=== PATIENT | female | born 1995 ===

== ENCOUNTER 2020-08-09 21:14 | Inpatient (IN) | payer OTHER ==
[~2020-08-09] VITALS: Ht 162.6 cm; Wt 47.3 kg
[2020-08-09] MEDS ORDERED: CYCL10 PO (22:41)
[2020-08-09] MEDS ORDERED: NAPR-1024 PO (22:42)
[2020-08-09] MEDS ORDERED: DiphenhydrAMINE HCL 50 MG/ML VIAL IM ONE (22:45)
[2020-08-09] MEDS ORDERED: HALOPERIDOL LACTATE 5 MG/ML VIAL IM ONE (22:45)
[2020-08-09] MEDS ORDERED: LORazepam 2 MG/ML VIAL IM ONE (22:45)
[2020-08-09 23:28] LABS: BASOPHILS % (AUTO) 0.4 % (0.0-2.0); EOSINOPHILS % (AUTO) 0.6 % (1.0-6.0); HEMATOCRIT 40.6 % (36-46); HEMOGLOBIN 13.3 g/dL (12.0-16.0); LYMPHOCYTES # (AUTO) 1.5 K/uL (1.0-4.8); LYMPHOCYTES % (AUTO) 20.7 % (22.0-44.0); MEAN CORPUSCULAR HEMOGLOBIN 29.7 pg (26.0-34.0); MEAN CORPUSCULAR HGB CONC 32.7 G/dL (31.0-37.0); MEAN CORPUSCULAR VOLUME 91 fL (80-100); MONOCYTES # (AUTO) 0.8 K/uL (0.1-1.0); MONOCYTES % (AUTO) 11.8 % (2.0-9.0); NEUTROPHILS # (AUTO) 4.7 K/uL (1.8-7.7); NEUTROPHILS % (AUTO) 66.5 % (40.0-70.0); PLATELET COUNT (AUTO) 237 K/uL (150-450); RED BLOOD CELL COUNT(AUTO) 4.47 MIL/uL (4.00-5.20); RED CELL DISTRIBUTION WIDTH 14.3 % (11.5-14.5)
[2020-08-09 23:36] LABS: ANION GAP 8 mmol/L (8-16); CALCIUM, TOTAL 9.1 mg/dL (8.8-10.5); CARBON DIOXIDE 23 mmol/L (22-29); CHLORIDE 101 mmol/L (98-107); CREATININE 0.76 mg/dL (0.60-1.30); GLOMERULAR FILTR. RATE CALC > 60 mL/min (>60); GLUCOSE,RANDOM 137 mg/dL (70-110); POTASSIUM 3.3 mmol/L (3.5-5.1); SODIUM SERUM 132 mmol/L (136-145); UREA NITROGEN, BLOOD 8 mg/dL (7-18)
[2020-08-09 23:49] LABS: ALANINE AMINOTRANSFERASE 39 U/L (12-78); ALBUMIN 4.2 g/dL (3.4-5.0); ALKALINE PHOSPHATASE 49 U/L (46-116); ASPARTATE AMINOTRANSFERASE 75 U/L (15-37); BILIRUBIN,TOTAL 2.1 mg/dL (0.1-1.0); HCG,QUANTITATIVE 1 mIU/mL (0-6); TOTAL PROTEIN, SERUM 7.4 g/dL (6.4-8.2)
[2020-08-10] MEDS ORDERED: POTASSIUM CHLORIDE 20 MEQ ER TABLET PO ONE ×2 (01:15→12:15)
[2020-08-10] MEDS ORDERED: 0.9% SODIUM CHLORIDE 10 ML SYRINGE IVP PRN (05:15)
[2020-08-10] MEDS ORDERED: ONDANSETRON HCL 4 MG/2 ML VIAL IVP PRN (05:15)
[2020-08-10] MEDS ORDERED: ACETAMINOPHEN 325 MG TABLET PO PRN (05:45)
[2020-08-10 07:35] VITALS: BP 110/70
[2020-08-10] MEDS: VITAMIN B COMPLEX WITH C TABLET PO SCH (08:17)
[2020-08-10] MEDS: ENOXAPARIN SODIUM 40 MG/0.4 ML PF SYRINGE SQ SCH (08:17)
[2020-08-10 12:57] LABS: APPEARANCE,URINE CLOUDY (CLEAR); BILIRUBIN,URINE NEGATIVE (NEGATIVE); GLUCOSE, URINE (UA) NEGATIVE (NEGATIVE); KETONES,URINE 15 mg/dL (NEGATIVE); LEUKOCYTE ESTERASE ,URINE MODERATE (NEGATIVE); NITRATE,URINE NEGATIVE (NEGATIVE); OCCULT BLOOD,URINE NEGATIVE (NEGATIVE); PROTEIN,URINE NEGATIVE (NEGATIVE); UROBILINOGEN,URINE 0.2 mg/dL (<=1.0)
[2020-08-10 13:02] LABS: AMPHET/METH SCREEN,URINE NEGATIVE (NEGATIVE); BARBITURATE SCREEN, URINE NEGATIVE (NEGATIVE); BENZODIAZEPINES SCREEN,URINE NEGATIVE (NEGATIVE); CANNABINOID SCREEN,URINE NEGATIVE (NEGATIVE); COCAINE SCREEN,URINE NEGATIVE (NEGATIVE); METHADONE SCREEN, URINE NEGATIVE (NEGATIVE); OPIATE SCREEN,URINE NEGATIVE (NEGATIVE)
[2020-08-10 13:05] LABS: PHENCYCLIDINE SCREEN,URINE NEGATIVE (NEGATIVE)
[2020-08-10 13:16] LABS: RBC,URINE 0-2 /HPF (0-2)
[2020-08-10 13:17] LABS: BACTERIA,URINE None Seen /HPF (None Seen); SQUAMOUS EPITHELIAL CELL,UR Few /LPF (None Seen)
[2020-08-10 15:03] VITALS: BP 118/76
[2020-08-10 19:35] VITALS: BP 122/72
[2020-08-11] MEDS: MELATONIN 3 MG TABLET PO PRN ×2 (00:05→22:41)
[2020-08-11 04:44] VITALS: BP 112/63
[2020-08-11 05:54] LABS: ANION GAP 7 mmol/L (8-16); CALCIUM, TOTAL 8.7 mg/dL (8.8-10.5); CARBON DIOXIDE 25 mmol/L (22-29); CHLORIDE 103 mmol/L (98-107); CREATININE 0.66 mg/dL (0.60-1.30); GLOMERULAR FILTR. RATE CALC > 60 mL/min (>60); GLUCOSE,RANDOM 96 mg/dL (70-110); PHOSPHORUS 3.7 mg/dL (2.5-4.9); POTASSIUM 3.7 mmol/L (3.5-5.1); SODIUM SERUM 135 mmol/L (136-145); UREA NITROGEN, BLOOD 5 mg/dL (7-18)
[2020-08-11 06:12] LABS: HEMOGLOBIN A1C 5.7 % (3.8-5.6)
[2020-08-11 07:22] VITALS: BP 111/72
[2020-08-11] MEDS: ONDANSETRON HCL 4 MG TABLET PO PRN ×2 (08:43→08:45)
[2020-08-11] MEDS: VITAMIN B COMPLEX WITH C TABLET PO SCH (08:43)
[2020-08-11] MEDS: ENOXAPARIN SODIUM 40 MG/0.4 ML PF SYRINGE SQ SCH (08:43)
[2020-08-11] MEDS: THIAMINE 100 MG TABLET PO SCH (08:43)
[2020-08-11] MEDS: RisperiDONE 1 MG TABLET PO SCH ×2 (12:03→21:20)
[2020-08-11] MEDS: QUEtiapine FUMARATE 25 MG TABLET PO PRN ×2 (16:33→21:30)
[2020-08-11 19:50] VITALS: BP 116/62
[2020-08-12] MEDS: QUEtiapine FUMARATE 25 MG TABLET PO PRN ×3 (01:20→23:09)
[2020-08-12] MEDS: HALOPERIDOL LACTATE 5 MG/ML VIAL IM PRN ×2 (01:54→14:31)
[2020-08-12 02:00] VITALS: BP 129/81
[2020-08-12] MEDS: VITAMIN B COMPLEX WITH C TABLET PO SCH (09:58)
[2020-08-12] MEDS: RisperiDONE 1 MG TABLET PO SCH ×2 (09:59→20:52)
[2020-08-12] MEDS: THIAMINE 100 MG TABLET PO SCH (09:59)
[2020-08-12] MEDS: ENOXAPARIN SODIUM 40 MG/0.4 ML PF SYRINGE SQ SCH (09:59)
[2020-08-12 10:00] VITALS: BP 98/69
[2020-08-12 17:05] VITALS: BP 103/70
[2020-08-12 20:30] VITALS: BP 123/79
[2020-08-12] MEDS: MELATONIN 3 MG TABLET PO PRN (23:09)
[2020-08-12] MEDS ORDERED: ZOLPIDEM TARTRATE 5 MG TABLET PO ONE (23:30)
[2020-08-13] MEDS: HALOPERIDOL LACTATE 5 MG/ML VIAL IM PRN (03:20)
[2020-08-13 04:40] VITALS: BP 134/89
[2020-08-13] MEDS: QUEtiapine FUMARATE 25 MG TABLET PO PRN ×2 (05:29→23:04)
[2020-08-13 07:33] VITALS: BP 134/86
[2020-08-13 08:51] VITALS: BP 145/98
[2020-08-13] MEDS: ENOXAPARIN SODIUM 40 MG/0.4 ML PF SYRINGE SQ SCH (09:00)
[2020-08-13] MEDS: VITAMIN B COMPLEX WITH C TABLET PO SCH (09:07)
[2020-08-13] MEDS: RisperiDONE 1 MG TABLET PO SCH ×2 (09:07→23:04)
[2020-08-13] MEDS: THIAMINE 100 MG TABLET PO SCH (09:07)
[2020-08-13] MEDS ORDERED: LORazepam 2 MG/ML VIAL IM ONE (10:30)
[2020-08-13 11:08] LABS: BASOPHILS % (AUTO) 0.2 % (0.0-2.0); EOSINOPHILS % (AUTO) 1.1 % (1.0-6.0); HEMATOCRIT 41.1 % (36-46); HEMOGLOBIN 13.3 g/dL (12.0-16.0); LYMPHOCYTES # (AUTO) 1.7 K/uL (1.0-4.8); LYMPHOCYTES % (AUTO) 22.2 % (22.0-44.0); MEAN CORPUSCULAR HEMOGLOBIN 29.4 pg (26.0-34.0); MEAN CORPUSCULAR HGB CONC 32.3 G/dL (31.0-37.0); MEAN CORPUSCULAR VOLUME 91 fL (80-100); MONOCYTES # (AUTO) 0.8 K/uL (0.1-1.0); NEUTROPHILS # (AUTO) 4.9 K/uL (1.8-7.7); NEUTROPHILS % (AUTO) 65.5 % (40.0-70.0); PLATELET COUNT (AUTO) 241 K/uL (150-450); RED BLOOD CELL COUNT(AUTO) 4.52 MIL/uL (4.00-5.20); RED CELL DISTRIBUTION WIDTH 14.3 % (11.5-14.5)
[2020-08-13 12:08] VITALS: BP 126/79
[2020-08-13 16:31] VITALS: BP 116/68
[2020-08-13 20:02] VITALS: BP 122/76
[2020-08-14 00:21] VITALS: BP 139/92
[2020-08-14 04:33] VITALS: BP 128/90
[2020-08-14 07:45] VITALS: BP 131/84
[2020-08-14] MEDS: RisperiDONE 1 MG TABLET PO SCH (08:16)
[2020-08-14] MEDS: ENOXAPARIN SODIUM 40 MG/0.4 ML PF SYRINGE SQ SCH (08:16)
[2020-08-14] MEDS: THIAMINE 100 MG TABLET PO SCH (08:16)
[2020-08-14] MEDS: VITAMIN B COMPLEX WITH C TABLET PO SCH (08:18)
[2020-08-14 12:02] VITALS: BP 124/80
[2020-08-14 15:54] VITALS: BP 136/89
[2020-08-14 19:40] VITALS: BP 122/76
[2020-08-14] MEDS: RisperiDONE 3 MG TABLET PO SCH (21:27)
[2020-08-15] MEDS: MELATONIN 3 MG TABLET PO PRN (00:03)
[2020-08-15 06:03] VITALS: BP 118/81
[2020-08-15] MEDS: QUEtiapine FUMARATE 25 MG TABLET PO PRN ×2 (06:23→21:54)
[2020-08-15 07:15] VITALS: BP 118/64
[2020-08-15] MEDS: THIAMINE 100 MG TABLET PO SCH (10:12)
[2020-08-15] MEDS: VITAMIN B COMPLEX WITH C TABLET PO SCH (10:12)
[2020-08-15] MEDS: ENOXAPARIN SODIUM 40 MG/0.4 ML PF SYRINGE SQ SCH (10:12)
[2020-08-15] MEDS: RisperiDONE 3 MG TABLET PO SCH ×2 (10:12→19:59)
[2020-08-15 19:55] VITALS: BP 124/71
[2020-08-16 03:36] VITALS: BP 121/76
[2020-08-16] MEDS: QUEtiapine FUMARATE 25 MG TABLET PO PRN ×4 (03:45→19:47)
[2020-08-16 08:06] VITALS: BP 134/77
[2020-08-16] MEDS: THIAMINE 100 MG TABLET PO SCH (08:17)
[2020-08-16] MEDS: VITAMIN B COMPLEX WITH C TABLET PO SCH (08:17)
[2020-08-16] MEDS: RisperiDONE 3 MG TABLET PO SCH ×2 (08:17→19:47)
[2020-08-16] MEDS: ENOXAPARIN SODIUM 40 MG/0.4 ML PF SYRINGE SQ SCH (08:18)
[2020-08-16 16:07] VITALS: BP 124/71
[2020-08-16 20:00] VITALS: BP 127/86
[2020-08-17] MEDS: MELATONIN 3 MG TABLET PO PRN (00:36)
[2020-08-17 05:18] VITALS: BP 127/78
[2020-08-17 08:11] VITALS: BP 137/96
[2020-08-17] MEDS: RisperiDONE 3 MG TABLET PO SCH (08:20)
[2020-08-17] MEDS: VITAMIN B COMPLEX WITH C TABLET PO SCH (08:20)
[2020-08-17] MEDS: ENOXAPARIN SODIUM 40 MG/0.4 ML PF SYRINGE SQ SCH (08:21)
[2020-08-17] MEDS ORDERED: RISP3TAB44 PO (10:20)
== END 2020-08-17 18:55 | DRG 885 ==
LOC: EMS 21:15 → 6N 08-10 01:18 → 6S 08-10 01:59 → 6N 08-10 02:30 → 6S 08-10 05:45 → 5S 08-13 11:28 → 6S 08-14 19:05
PROVIDERS: ADMIT Internal Medicine; ATTEND Internal Medicine
DX: F29 Unspecified psychosis not due to a substance or known physiological condition (principal); E43 Unspecified severe protein-calorie malnutrition; F15.20 Other stimulant dependence, uncomplicated; R45.851 Suicidal ideations; Z68.1 Body mass index [BMI] 19.9 or less, adult; F20.9 Schizophrenia, unspecified; R74.8 Abnormal levels of other serum enzymes; Z20.828 Contact with and (suspected) exposure to other viral communicable diseases; T14.8XXA Other injury of unspecified body region, initial encounter; W22.01XA Walked into wall, initial encounter; R00.0 Tachycardia, unspecified; Z78.1 Physical restraint status; Z79.899 Other long term (current) drug therapy
CPT/HCPCS: 70450; 83036; 83735; 84100; 87086; 87426; 93005; 99291; G0480; J1200; J1630; J1650; J2060; Q0162